=== PATIENT | male | born 2000 | race Two or more races ===

== ENCOUNTER 2025-04-03 10:13 | Emergency (ER) | payer SELFPAY ==
[~2025-04-03] VITALS: Ht 170.2 cm; Wt 81.6 kg
[2025-04-03 10:57] LABS: PLATELET COUNT (AUTO) 262 K/uL (150-450); RED BLOOD CELL COUNT(AUTO) 5.30 MIL/uL (4.5-6.0); RED CELL DISTRIBUTION WIDTH 13.8 % (11.5-15.0); WHITE BLOOD COUNT (AUTO) 9.2 K/uL (4.3-11.0)
[2025-04-03 11:05] LABS: CALCIUM, SERUM 8.5 mg/dL (8.5-10.1); CREATININE 0.9 mg/dL (0.6-1.3); SODIUM SERUM 140.0 mmol/L (136-145); UREA NITROGEN, BLOOD 13.0 mg/dL (7-18)
[2025-04-03] MEDS ORDERED: CT SWABBABLE VALVE TRANS SET 1 EA INFUS.SET MC ONE (11:10)
[2025-04-03] MEDS ORDERED: IV NS 0.9% 250 ML IV ONE (11:10)
[2025-04-03] MEDS ORDERED: IOHEXOL-300 100 ML VIAL IV ONE (11:10)
[2025-04-03 11:11] LABS: TOTAL PROTEIN, SERUM 7.3 g/dL (6.4-8.2)
[2025-04-03 11:19] LABS: ASPARTATE AMINOTRANSFERASE 22.0 U/L (15-37)
[2025-04-03] MEDS: KETOROLAC TROMETHAMINE INJ 30 MG/ML VIAL IV ONE (12:30)
[2025-04-03] MEDS ORDERED: KETOROLAC TROMETHAMINE INJ 30 MG/ML VIAL ONE (12:42)
[2025-04-03 12:47] VITALS: BP 129/79; TEMP 98.6; O2SAT 99
== END 2025-04-03 12:47 | disposition home or self-care (01) ==
LOC: ER 10:23
DX: R10.31 Right lower quadrant pain (principal)
CPT/HCPCS: 99285; 74177; 96374; 85025; 36415; 80053; J1885; J7050; Q9967